=== PATIENT | female | born 1995 | race African-American/Black ===

== ENCOUNTER 2019-09-05 11:21 | Emergency (ER) | payer OTHER ==
[~2019-09-05] VITALS: Ht 162.6 cm; Wt 78.2 kg
[2019-09-05] MEDS ORDERED: CALC600C3 PO (11:28)
[2019-09-05] MEDS ORDERED: NS 1,000 ML IV ONE (12:15)
[2019-09-05] MEDS ORDERED: ONDANSETRON 4MG/2ML VIAL (J2405) IV ONE (12:15)
[2019-09-05 12:26] LABS: EOS % 0.5 % (0.0-3.0); HEMATOCRIT 42.9 % (36.0-47.0); HEMOGLOBIN 13.7 g/dl (12.0-15.5); LYMPH # 0.3 10^3/uL (1.5-5.0); LYMPH % 5.5 % (24.0-44.0); MEAN CORPUSCULAR HGB CONC 31.9 g/dl (32.0-36.5); MEAN CORPUSCULAR VOLUME 94.1 fl (80.0-96.0); MONO # 0.3 10^3/uL (0.0-0.8); MONO % 5.7 % (0.0-5.0); NEUTROPHILS # 5.3 10^3/uL (1.5-8.5); PLATELET COUNT, AUTOMATED 300 10^3/uL (150-450); RED BLOOD COUNT 4.56 10^6/uL (4.00-5.40)
[2019-09-05 12:49] LABS: ALBUMIN 3.9 GM/DL (3.2-5.2); ALT/SGPT 23 U/L (12-78); BILIRUBIN,TOTAL 0.4 MG/DL (0.2-1.0); BLOOD UREA NITROGEN 12 MG/DL (7-18); CALCIUM LEVEL 8.6 MG/DL (8.5-10.1); CARBON DIOXIDE LEVEL 27 MEQ/L (21-32); CHLORIDE LEVEL 109 MEQ/L (98-107); GLOMERULAR FILTRATION RATE > 60.0 (>60); GLUCOSE, FASTING 110 MG/DL (70-100); SODIUM LEVEL 140 MEQ/L (136-145); TOTAL PROTEIN 7.1 GM/DL (6.4-8.2)
[2019-09-05 12:52] LABS: HCG, SERUM QUALITATIVE NEGATIVE (NEGATIVE)
[2019-09-05 13:53] VITALS: BP 117/68
[2019-09-05] MEDS ORDERED: ONDA4TAB6 PO (13:54)
== END 2019-09-05 13:59 | disposition home or self-care (01) ==
LOC: M ED 11:21
DX: A08.11 Acute gastroenteropathy due to Norwalk agent (principal)
CPT/HCPCS: 80053; 84703; 85025; 87507; 96374; 99284; J2405

== ENCOUNTER 2019-10-06 23:28 | Emergency (ER) | payer OTHER ==
[~2019-10-06] VITALS: Ht 162.6 cm; Wt 70.0 kg
[~2019-10-06 23:28] MED LIST: CALC600C3 PO; ONDA4TAB6 PO
[2019-10-07] MEDS ORDERED: ONDANSETRON 4MG/2ML VIAL (J2405) IV ONE ×2 (00:30→01:30)
[2019-10-07 01:17] LABS: BASO % 0.2 % (0.0-1.0); EOS # 0.1 10^3/uL (0.0-0.5); HEMATOCRIT 40.4 % (36.0-47.0); HEMOGLOBIN 13.4 g/dl (12.0-15.5); LYMPH # 1.9 10^3/uL (1.5-5.0); LYMPH % 30.4 % (24.0-44.0); MEAN CORPUSCULAR HEMOGLOBIN 30.5 pg (27.0-33.0); MEAN CORPUSCULAR HGB CONC 33.2 g/dl (32.0-36.5); MEAN CORPUSCULAR VOLUME 91.8 fl (80.0-96.0); MONO # 0.6 10^3/uL (0.0-0.8); MONO % 8.8 % (0.0-5.0); NEUTROPHILS # 3.7 10^3/uL (1.5-8.5); NEUTROPHILS % 59.3 % (36.0-66.0); PLATELET COUNT, AUTOMATED 323 10^3/uL (150-450); WHITE BLOOD COUNT 6.2 10^3/uL (4.0-10.0)
[2019-10-07] MEDS ORDERED: GI COCKTAIL 50ML BTL(HYOSCYAMINE/MAALOX/LIDOCAINE VISCOUS)(1:3:1) PO ONE (01:30)
[2019-10-07] MEDS ORDERED: diphenhydrAMINE INJ 50MG/ML VIAL (J1200) IV STA (01:30)
[2019-10-07] MEDS ORDERED: PANTOPRAZOLE 40MG INJ (PROTONIX) (C9113) IV ONE (01:30)
[2019-10-07] MEDS ORDERED: KETOROLAC 30 MG/ML VIAL (J1885) IV ONE (01:30)
[2019-10-07 01:41] LABS: ALBUMIN 3.9 GM/DL (3.2-5.2); ALT/SGPT 24 U/L (12-78); BILIRUBIN,DIRECT < 0.1 MG/DL (0.0-0.2); BILIRUBIN,TOTAL 0.2 MG/DL (0.2-1.0); LIPASE 36 U/L (73-393); TOTAL PROTEIN 7.2 GM/DL (6.4-8.2)
[2019-10-07 01:49] LABS: INFLUENZA A AMPLIFICATION NEGATIVE (NEGATIVE); INFLUENZA B AMPLIFICATION NEGATIVE (NEGATIVE)
[2019-10-07] MEDS ORDERED: OMEP1CAP73 PO (02:11)
[2019-10-07 02:31] VITALS: BP 123/65
== END 2019-10-07 02:32 | disposition home or self-care (01) ==
LOC: M ED 23:28
DX: K21.9 Gastro-esophageal reflux disease without esophagitis (principal); J02.9 Acute pharyngitis, unspecified
CPT/HCPCS: 80047; 80076; 83690; 84702; 85025; 87502; 96374; 96375; 96376; 99284; C9113; J1200; J1885; J2405

== ENCOUNTER 2020-04-10 23:46 | Emergency (ER) | payer OTHER ==
[~2020-04-10] VITALS: Ht 162.6 cm; Wt 91.6 kg
[~2020-04-10 23:46] MED LIST changes: +OMEP1CAP73 PO
[2020-04-10 23:47] VITALS: BP 131/97
[2020-04-11] MEDS ORDERED: MULTTAB20 PO (00:01)
[2020-04-11] MEDS ORDERED: ONDA4TAB6 (00:01)
== END 2020-04-11 01:00 | disposition home or self-care (01) ==
LOC: M ED 23:46
DX: F41.1 Generalized anxiety disorder (principal); Z79.899 Other long term (current) drug therapy

== ENCOUNTER 2020-04-26 20:28 | Emergency (ER) | payer OTHER ==
[~2020-04-26] VITALS: Ht 162.6 cm; Wt 89.7 kg
[~2020-04-26 20:28] MED LIST changes: +MULTTAB20 PO; +ONDA4TAB6
[2020-04-26 21:21] LABS: BASO % 0.1 % (0.0-1.0); EOS # 0.1 10^3/uL (0.0-0.5); EOS % 1.2 % (0.0-3.0); HEMATOCRIT 37.4 % (36.0-47.0); HEMOGLOBIN 12.6 g/dl (12.0-15.5); LYMPH # 1.9 10^3/uL (1.5-5.0); LYMPH % 16.1 % (24.0-44.0); MEAN CORPUSCULAR HEMOGLOBIN 30.4 pg (27.0-33.0); MEAN CORPUSCULAR HGB CONC 33.7 g/dl (32.0-36.5); MEAN CORPUSCULAR VOLUME 90.3 fl (80.0-96.0); MONO # 0.8 10^3/uL (0.0-0.8); MONO % 6.4 % (0.0-5.0); NEUTROPHILS # 8.8 10^3/uL (1.5-8.5); NEUTROPHILS % 75.7 % (36.0-66.0); PLATELET COUNT, AUTOMATED 326 10^3/uL (150-450); RED BLOOD COUNT 4.14 10^6/uL (4.00-5.40); WHITE BLOOD COUNT 11.7 10^3/uL (4.0-10.0)
[2020-04-26] MEDS ORDERED: NS 1,000 ML IV ONE (21:45)
[2020-04-26] MEDS ORDERED: METOCLOPRAMIDE INJ 10MG/2ML VIAL (J2765 PER 1) IV ONE (21:45)
[2020-04-26 22:19] LABS: ALBUMIN 3.2 GM/DL (3.2-5.2); ALT/SGPT 15 U/L (12-78); BILIRUBIN,DIRECT < 0.1 MG/DL (0.0-0.2); BILIRUBIN,TOTAL < 0.1 MG/DL (0.2-1.0); HCG, SERUM QUANTITATIVE 81957 MIU/ML; LIPASE 37 U/L (73-393); TOTAL PROTEIN 6.7 GM/DL (6.4-8.2)
[2020-04-26 22:47] LABS: BLOOD UREA NITROGEN 11 MG/DL (7-18); CALCIUM LEVEL 9.2 MG/DL (8.5-10.1); CARBON DIOXIDE LEVEL 25 MEQ/L (21-32); CHLORIDE LEVEL 104 MEQ/L (98-107); GLOMERULAR FILTRATION RATE > 60.0 (>60); GLUCOSE, FASTING 79 MG/DL (70-100); POTASSIUM SERUM 3.9 MEQ/L (3.5-5.1); SODIUM LEVEL 135 MEQ/L (136-145)
--- NOTE | 2020-04-27 00:24 | REPVR ---
PROCEDURE INFORMATION: Exam: US First Trimester, Transabdominal Exam date and time: 04/26/2020 12:04 AM Age: 24 years old Clinical indication: complicated by abdominal or pelvic pain; Generalized abdominal pain; First trimester; Gestational age or lmp: 01/04/20; ; Additional info: Abd pain TECHNIQUE: Imaging protocol: Real-time transabdominal obstetrical ultrasound of the maternal pelvis and a first trimester , less than 14 weeks 0 days, with image documentation. COMPARISON: No relevant prior studies available. FINDINGS: Gestation: Single live intrauterine gestation. Embryonic/ heart rate: heart rate measures 160 bpm. Placenta: Unremarkable. No subchorionic bleed. Amniotic fluid: Amniotic fluid is adequate. BIOMETRY: Gestational age (AUA): Estimated gestational age 12 weeks 5 days. Estimated due date (AUA): Estimated due date is 11/03/2020 [place]-R[place] length: [place]ump length is 63 mm. MATERNAL: Uterus: Unremarkable. Cervix: Unremarkable. Right adnexa: Right ovary is obscured by overlying bowel gas. Left adnexa: Left ovary measures 2.7 x 1.6 x 2.5 cm. No masses. Normal vascular flow. Intraperitoneal space: No intraperitoneal free fluid. IMPRESSION: 1. Single live intrauterine gestation. 2. Estimated gestational age is 12 weeks 5 days. 3. Estimated due date 11/03/2020 Electronically signed by: Chasidy Hogan On 04/27/2020 00:24:06 AM
[2020-04-27] MEDS ORDERED: REGL10TA6 PO (00:50)
[2020-04-27 01:01] VITALS: BP 113/68
== END 2020-04-27 01:03 | disposition home or self-care (01) ==
LOC: M ED 20:28
DX: O21.0 Mild hyperemesis gravidarum (principal); Z3A.12 12 weeks gestation of pregnancy; Z79.899 Other long term (current) drug therapy
CPT/HCPCS: 76801; 80048; 80076; 81001; 83690; 84702; 85025; 93976; 96361; 96374; 99284; J2765

== ENCOUNTER 2020-09-19 19:05 | Outpatient (CLI) | payer OTHER ==
[~2020-09-19] VITALS: Ht 162.6 cm; Wt 99.9 kg
[~2020-09-19 19:05] MED LIST changes: +REGL10TA6 PO
[2020-09-19 19:24] VITALS: BP 131/71
--- NOTE | 2020-09-19 20:49 | IPNPDOC ---
Text Note Date of Service The patient was seen on 09/19/20. NOTE 25yo at 33+1wks presenting for c/o lower abdominal pain. She reports this pain is constant in nature in her lower abdomen. She reports this pain has been present for a long time but that she presented to L&D tonight because it has not improved despite hydration. She denies LOF, DFM, VB, or regular ctx's. She does endorse a white discharge but does not know if it is abnormal or not. Vitals: normotensive, afebrile NST: reactive Morrice: uterine irritability noted but no regular ctx's seen. PE: General: well-appearing, sitting upright in bed using cellphone, in NAD, conversing in full sentences HEENT: NC/AT, airway patent and self-maintained RESP: no exaggerated respiratory effort appreciated ABD: soft, nontender, no discoloration Fundus: soft, nontender, S=D : NEFG, vaginal discharge c/w sumaya noted. Cervix closed/thick/high. Ext: no edema noted Labs: UA: negative Microscopy: c/w sumaya A/P: 25yo at 33+1wks presenting for c/o lower abdominal pain that has been present for a long time prior to tonight but unresponsive to hydration and patient reported having to work all day tomorrow. Reassuring and maternal status. UA negative. Vaginitis c/w sumaya appreciated today. -Diflucan PO now -Patient counseled to continue hydration as she has -Patient reports having maternity belt - counseled to wear it daily, may present to OB clinic during business hours to ensure correct fit -Patient counseled on FKCs, labor precautions -Patient to f/u as scheduled in OB clinic All questions answered. Med rec done. VS,Fishbone, I+O VS, Fishbone, I+O Vital Signs Date Time Temp Pulse Resp B/P (MAP) Pulse Ox O2 Delivery O2 Flow Rate FiO2 09/19/20 19:24 97.8 113 131/71 (91) NELY GUIDO DO Sep 19, 2020 20:49
== END 2020-09-19 21:00 | disposition home or self-care (01) ==
LOC: M LDO 19:05
DX: O26.893 Other specified pregnancy related conditions, third trimester (principal); R10.30 Lower abdominal pain, unspecified; Z3A.33 33 weeks gestation of pregnancy
CPT/HCPCS: 59025; 81001; 87086; G0378; G0463

== ENCOUNTER 2020-11-01 06:45 | Inpatient (IN) | payer OTHER ==
[~2020-11-01] VITALS: Ht 162.6 cm; Wt 104.1 kg
[2020-11-01] VITALS (7 sets, daily range): BP systolic 106–127; BP diastolic 60–83
[2020-11-01] MEDS ORDERED: PENICILLIN G POTASSIUM IV 5 MU in D5W MINI-BAG PLUS 100 ML IV STA (09:06)
[2020-11-01] MEDS ORDERED: miSOPROStol 25MCG 1/4 TABLET PO ONE (09:10)
--- NOTE | 2020-11-01 09:36 | HPEPDOC ---
Obstetrical History & Physical General Date of Admission Nov 01, 2020 at 06:45 History of Present Illness Michelle is a 25yo at 39+2wks gestation, EDC [id number] by 1TUS. She presents to L&D for admission for IOL d/t new diagnosis of GDM, Late 1hr glucose screen of 214. Pt reports +FM, denies LOF/VB/CTX. She feels well and has no concerns today. complicated by: Overweight, BMI 29.1 Excessive weight gain of 58lbs 1hr Glucose 214 (late 3rd trimester screen) GBS Positive Rh Negative (O-) Chief Complaint: Induction of labor Information Provided By: Patient Age: 25 : 1 Term: 0 Pre-term: 0 Abortions: 0 Livin Care Care: Good Care Number of Visits: 10 Dating Final EDC: Nov 06, 2020 Final EDC for Daily Update: Nov 06, 2020 Final EDC by: 1st trimester (US) Antepartum Course Height (inches): 64 Pre- weight (lbs.): 170 Admission Weight (lbs.): 228 Change in Weight (lbs.): 58 Past Medical History Past Obstetrical History : Past Obstetrical History: [employer] History: No pertinent history Past Medical History Medical History Stress fractures in hips (2019) Overweight Surgical History: [place] teeth Family History Family History Patient Adopted - unknown family history Social History Social history Active [employer] Marital Status: Family situation: Spouse/partner home * Smoker: non-smoker Alcohol: Denies Drugs: denies Abuse Violence Screening Have you been hit/kicked/slapp: No Have you been sexually assault: No Imunizations Tdap status: current Influenza Status: current Allergies Coded Allergies: No Known Allergies (Unverified , 09/05/19) Medications Scheduled No122/Iron/Folic Acid ( Multi Tablet) 1 Each Tablet, 1 TAB PO DAILY Physical Examination Physical Examination GENERAL: Alert and oriented times three. ABDOMEN: Gravid and non-tender to touch. FETUS: Is vertex (VTX) by sterile vaginal examination (SVE), fetus is vertex (VTX) by Omega. HEART RATE: Regular rate and rhythm. LUNGS: Observed nonlabored breathing. EXTREMITIES: Mild pedal edema. No clonus. Vital Signs/I&O O: VSS, afebrile FHR 150s, + accels, no decels noted CTX: q 6-8 minutes, mild by palpation, pt denies feeling EFW 3700g VE: Close/70%/High, posterior Labs: Pending Laboratory Data 24H LABS Laboratory Tests 2 11/01/20 06:51: Serology Scanned Report Hepatitis B Testing Pertinent Laboratoy Data Blood Type: O- RBC Antibody Screen: Negative HIV: Negative Hepatitis B: Negative Rapid Plasma Reagin: Nonreactive Rubella: Immune Varicella: Immune Chlamydia/Gonorrhea: Negative Group B Streptococcus: Positive Quad Screen Test: Declined Cystic Fibrosis: Negative Anatomy Ultrasound Ultrasound Date: Oct 22, 2020 Placenta Location: Anterior Normal Anatomy: Yes Placenta Previa: No Vaginal Examination Presentation: Cephalic presentation Tocometer Contractions: Yes Strength: palpated as mild Assessment/Plan Assessment Michelle is a 25yo at 39+1wks gestation who is being admitted for IOL d/t late dx of GDM. Category I FHT, GBS Positive, Rh Negative. Plan Admit to LND, consent for induction, labor and delivery, interventions and C/S as appropriate. Consent for blood products PRN PIV start, admission labs with CMP Fingersticks AC/HS (will change as labor progresses) Start IOL with PO cytotec Consider CRB at next exam Consider Pitocin as labor progresses IV and PO hydration Diabetic diet PCN for GBS when in labor Anticipate Consult with OB as indicated MARY MOREAU CNM Nov 01, 2020 09:36
[2020-11-01 09:43] LABS: BASO % 0.1 % (0.0-1.0); EOS # 0.1 10^3/uL (0.0-0.5); EOS % 0.8 % (0.0-3.0); HEMATOCRIT 36.4 % (36.0-47.0); HEMOGLOBIN 12.1 g/dl (12.0-15.5); LYMPH # 1.5 10^3/uL (1.5-5.0); LYMPH % 19.4 % (24.0-44.0); MEAN CORPUSCULAR HEMOGLOBIN 29.4 pg (27.0-33.0); MEAN CORPUSCULAR HGB CONC 33.2 g/dl (32.0-36.5); MEAN CORPUSCULAR VOLUME 88.3 fl (80.0-96.0); MONO # 0.8 10^3/uL (0.0-0.8); MONO % 10.1 % (2.0-8.0); NEUTROPHILS # 5.5 10^3/uL (1.5-8.5); PLATELET COUNT, AUTOMATED 246 10^3/uL (150-450); RED BLOOD COUNT 4.12 10^6/uL (4.00-5.40)
[2020-11-01 10:44] LABS: ALBUMIN 2.5 GM/DL (3.2-5.2); ALT/SGPT 10 U/L (12-78); BILIRUBIN,TOTAL 0.1 MG/DL (0.2-1.0); BLOOD UREA NITROGEN 9 MG/DL (7-18); CALCIUM LEVEL 9.2 MG/DL (8.5-10.1); CARBON DIOXIDE LEVEL 21 MEQ/L (21-32); CHLORIDE LEVEL 107 MEQ/L (98-107); GLOMERULAR FILTRATION RATE > 60.0 (>60); GLUCOSE, FASTING 92 MG/DL (70-100); POTASSIUM SERUM 4.5 MEQ/L (3.5-5.1); SODIUM LEVEL 136 MEQ/L (136-145); TOTAL PROTEIN 5.8 GM/DL (6.4-8.2)
[2020-11-01] MEDS ORDERED: PENICILLIN G POTASSIUM IV 2.5 MU in IV 1 EA IV SCH (13:10)
[2020-11-01] MEDS ORDERED: miSOPROStol 50MCG 1/2 TABLET PO ONE (15:00)
--- NOTE | 2020-11-01 15:11 | IPNPDOC ---
Obstetrical Progress Note Date of Service Nov 01, 2020 Anaya Martinez is a 25yo at 39+2wks currently undergoing IOL for GDM. Pt denies feeling any contractions, denies VB/LOF, reports +FM. She feels well and has no concerns at this time. Objective O: VSS, afebrile Fingersticks WNL VE: deferred FHR 140, moderate variability, + accels, no decels noted CTX by TOCO: q7-8 minutes, pt not feeling Vital Signs Date Time Temp Pulse Resp B/P (MAP) Pulse Ox O2 Delivery O2 Flow Rate FiO2 11/01/20 11:40 96 106/60 (75) 11/01/20 11:40 97.6 18 Assessment Heart Rate Tracing: Category I Tocometer Contractions: Yes Frequency: regular Sterile Vaginal Examination Postion/Presentation: Cephalic presentation Assessment and Plan Status: Reassuring Group B Streptococcus: Positive Anticipate: Vaginal Delivery Additional Comments A: 25yo at 39+2wks, undergoing IOL for GDM, not in labor. Category I FHT P: Administer 2nd dose of Buccal Cytotec 50mcg Monitor maternal/ status Intermittent monitoring per protocol after 1st hour post cytotec Consult with OB if indicated Anticipate MARY MOREAU CNM Nov 01, 2020 15:10
[2020-11-01] MEDS ORDERED: CALCIUM CARBONATE 500 MG CHEW U/D PO ONE (19:55)
[2020-11-01] MEDS: ONDANSETRON 4MG/2ML VIAL IV PRN (20:03)
[2020-11-02] VITALS (9 sets, daily range): BP systolic 119–141; BP diastolic 68–97
[2020-11-02] MEDS ORDERED: miSOPROStol 25MCG 1/4 TABLET PV ONE (08:15)
--- NOTE | 2020-11-02 09:48 | IPNPDOC ---
Obstetrical Progress Note Date of Service Nov 02, 2020 Subjective Received report and assumed care for Michelle, 25yo at 39+3wks, who was admitted yesterday for IOL d/t late diagnosis of GDM. She did received 2x PO doses of Cytotec yesterday (25mcg/50mcg) and allowed to rest overnight. She reports +FM, denies LOF/VB/CTX and denies any concerns at this time. Objective O: VSS, afebrile FHR 140s, moderate variability, + accels, few late decelerations when pt is lying on back that resolve spontaneously CTX by TOCO: q 2-6 minutes, but pt denies feeling VE: Closed/30/High (unchanged from yesterday) Vital Signs Date Time Temp Pulse Resp B/P (MAP) Pulse Ox O2 Delivery O2 Flow Rate FiO2 11/02/20 03:27 97.9 88 16 119/70 (86) Assessment Heart Rate Tracing: Category II Tocometer Contractions: Yes Frequency: irregular Sterile Vaginal Examination Postion/Presentation: Cephalic presentation Assessment and Plan Status: Reassuring Group B Streptococcus: Positive Anticipate: Vaginal Delivery Additional Comments A: 25yo G1P-at 39+3wks, IOL for GDM, fingersticks D/C'd overnight (were WNL). Category II FHT d/t late decelerations, otherwise reassuring FHT. P: Close monitoring of maternal/ status Reposition and keep pt from lying flat on back Continue IOL with Cytotec (PV 25mcg) Consult with OB as indicated Anticipate MARY MOREAU CNM Nov 02, 2020 09:48
[2020-11-02] MEDS ORDERED: miSOPROStol 50MCG 1/2 TABLET PO ONE (14:55)
[2020-11-02] MEDS ORDERED: PROMETHAZINE INJ 25 MG/ML VIAL (J2550) IV PRN (20:25)
[2020-11-02] MEDS ORDERED: BUTORPHANOL 2 MG/ML INJ (J0595) IV PRN (20:25)
[2020-11-02] MEDS ORDERED: MIRALAX *UNIT DOSE* 17GM PACKET PO PRN (20:40)
[2020-11-02] MEDS ORDERED: OXYTOCIN DRIP 30 UNITS in IV 1 EA IV SCH (20:50)
--- NOTE | 2020-11-02 20:50 | IPNPDOC ---
Text Note Date of Service The patient was seen on 11/02/20. NOTE 25 yo at 39+3 weeks gestation admitted yesterday morning for an IOL for new diagnosis of GDM based on late 1hr GTT of 214. Her induction process has been slow, and she has received 4 doses of misoprostol since yesterday morning, most recently 50mcg buccally at ~1530 today. Michelle reports feeling some mild cramping but nothing significant. She denies any bleeding. She endorses movement. She has just eaten. Chaperoned by RN Vitals - VSS, afebrile, normotensive, non tachycardic General - AAOX3, sitting up in bed, pleasant and conversant, NAD Abdomen - Gravid uterus. No fundal tenderness. Cervix - FT/80/-4, posterior. Whitten bulb placed with 40ml saline intrauterine. FHR tracing - Cat I with moderate variability, +accels, no decels. Ctx regular Q2-3 mins Bedside TAUS ( anatomy not assessed): cephalic presenting infant Will add concurrent low dose pitocin when feasible. Stadol and phenergan ordered for pain and nausea. Miralax also ordered per patient request as she hasn't had a bowel movement in several days and feels constipated. Will start Q2H fingerstick blood glucose checks and also initiate PCN for GBS prophylaxis when whitten bulb is expelled. All patient questions answered. Fallon Ruiz, I+O Fallon BOWENS, I+O Vital Signs Date Time Temp Pulse Resp B/P (MAP) Pulse Ox O2 Delivery O2 Flow Rate FiO2 11/02/20 13:20 82 126/75 (92) 11/02/20 11:35 18 11/02/20 08:00 97.8 YAIMA WYATT DO Nov 02, 2020 20:49
[2020-11-02] MEDS: LR 1,000 ML IV SCH (21:08)
[2020-11-03] VITALS (56 sets, daily range): BP systolic 108–156; BP diastolic 57–92
[2020-11-03] MEDS ORDERED: PENICILLIN G POTASSIUM IV 5 MU in D5W MINI-BAG PLUS 100 ML IV STA (03:48)
[2020-11-03] MEDS: LR 1,000 ML IV SCH ×2 (03:53→10:05)
[2020-11-03] MEDS ORDERED: FENTANYL 2MCG/ML ROPIVACAINE 0.2% IN 0.9% NACL 100ML IVBAG As Ordered ONE (04:05)
[2020-11-03] MEDS: ONDANSETRON 4MG/2ML VIAL IV PRN (04:11)
[2020-11-03] MEDS ORDERED: ONDANSETRON 4MG/2ML VIAL IV PRN ×3 (06:00→14:15)
[2020-11-03] MEDS ORDERED: EPIDURAL COMMENT XX SCH (06:00)
[2020-11-03] MEDS ORDERED: NALOXONE INJ 0.4MG/1ML VIAL (J2310 PER 1MG) IV PRN ×3 (06:00→12:28)
[2020-11-03] MEDS ORDERED: diphenhydrAMINE 50MG/ML VIAL (J1200) IV PRN ×2 (06:00→12:28)
[2020-11-03] MEDS ORDERED: ePHEDrine SULFATE 25 MG/5 ML(5MG/ML) SYRINGE IV PRN (06:00)
[2020-11-03] MEDS ORDERED: LACTATED RINGER'S 1000 ML IV PRN (06:00)
[2020-11-03] MEDS ORDERED: FENTANYL/ROPIVACAINE/NACL BAG 100 ML EPIDURAL SCH (06:00)
[2020-11-03] MEDS ORDERED: REFRIGERATOR IV KEYS XX PRN (06:00)
[2020-11-03] MEDS ORDERED: EPIDURAL/PCA KEYS XX PRN (06:00)
--- NOTE | 2020-11-03 06:39 | IPNPDOC ---
Text Note Date of Service The patient was seen on 11/03/20. NOTE Michelle progressed slowly while on low dose pitocin. She underwent SROM, clear fluid, at ~0300 this AM. Lara bulb came out around ~0530. Cervix 4-5/80/-3 per RN exam. She recently received an epidural and is now comfortable. FHR has been Cat II due to some periods of minimal variability and sporadic variable and late decels. She has received IV fluid and ephedrine and positional changes have been completed. FHR currently is reassuring with moderate variability and +accels. Glucose levels have been 70s-90s. She has been receiving PCN. Plan to continue with pitocin. Mo VS,Fallon, I+O VS, Fallon, I+O Vital Signs Date Time Temp Pulse Resp B/P (MAP) Pulse Ox O2 Delivery O2 Flow Rate FiO2 11/03/20 06:14 96 116/62 (80) 11/03/20 06:04 98.2 20 11/02/20 21:08 Room Air YAIMA WYATT DO Nov 03, 2020 06:39
[2020-11-03] MEDS ORDERED: PENICILLIN G POTASSIUM IV 2.5 MU in IV 1 EA IV SCH (08:00)
[2020-11-03] MEDS ORDERED: ACETAMINOPHEN 650 MG SUPP PR SCH (10:40)
[2020-11-03] MEDS ORDERED: ACETAMINOPHEN 650 MG SUPP PR ONE (11:00)
--- NOTE | 2020-11-03 11:10 | IPNPDOC ---
Obstetrical Progress Note Date of Service Nov 03, 2020 Subjective Received report and assumed care of Michelle, a 25yo at 39+4wks today, who is now on day #3 of IOL for undiagnosed GDM. She has received cytotec x4, CRB, SROM at 0312 (clear fluid); stadol/phenergan for pain and now is comfortable with epidural. Pt was started on pitocin this AM, but has had recurrent late decelerations on and off since her epidural. Pt has been adequately treated for GBS. Objective O: VSS, now febrile (temp 100.4 rectally). One mild range BP around 0730, otherwise WNL FHR was stable at 150s, +accels, late decelerations Pitocin turned off at 0919 and late decels have resolved, then FHR increased to 170s-180s with continued moderate variability. CTX q 3-5 minutes on pitocin, now spacing since pitocin turned off VE at 0850: 5/80/-3, caput present, no change for >3 hours Vital Signs Date Time Temp Pulse Resp B/P (MAP) Pulse Ox O2 Delivery O2 Flow Rate FiO2 11/03/20 08:15 103 138/87 (104) 11/03/20 07:14 99.2 20 98 Room Air Assessment Variability: Moderate Heart Rate Tracing: Category II Tocometer Contractions: Yes Sterile Vaginal Examination Postion/Presentation: Cephalic presentation Assessment and Plan Group B Streptococcus: Positive Additional Comments A: 25yo at 39+4wks, IOL for GDM, new dx of chorio. P: Unasyn for chorio Tylenol for temp Notified Dr. Harkins of patient status Rapid Covid ordered Close maternal / monitoring Will reassess to determine delivery options MARY MOREAU CNM Nov 03, 2020 11:10
[2020-11-03] MEDS: AMPICILLIN SOD/SULBACTAM SOD 3 GM in D5W MINI-BAG PLUS 100 ML IV SCH ×2 (11:12→18:06)
[2020-11-03] MEDS ORDERED: BICITRA 30ML SOLN UDC PO ONE (11:20)
[2020-11-03] MEDS ORDERED: AZITHROMYCIN INJ 500 MG, VIAL MATE ADAPTER 1 EACH in NS 250 ML IV ONE (11:20)
[2020-11-03] MEDS ORDERED: OXYTOCIN DRIP 30 UNITS in IV 1 EA IV PRN (11:20)
[2020-11-03] MEDS ORDERED: BUPIVACAINE HCL 0.25% 10ML VIAL SC SCH (11:20)
[2020-11-03] MEDS ORDERED: LIDOCAINE 2% W/EPINEPHRINE 20ML VIAL **PRES FREE As Ordered ONE (11:38)
[2020-11-03] MEDS ORDERED: OXYTOCIN INJ 10 UNITS/ML VIAL (J2590) As Ordered ONE ×2 (11:41→11:42)
[2020-11-03] MEDS ORDERED: CLINDAMYCIN 900 MG in IV 1 EA IV ONE ×3 (11:45→20:00)
--- NOTE | 2020-11-03 11:59 | IPNPDOC ---
Obstetrical Progress Note Date of Service Nov 03, 2020 Objective Vital Signs Date Time Temp Pulse Resp B/P (MAP) Pulse Ox O2 Delivery O2 Flow Rate FiO2 11/03/20 08:15 103 138/87 (104) 11/03/20 07:14 99.2 20 98 Room Air Assessment Variability: Moderate Accelerations: Positive Decelerations: Intermittent Heart Patterns: Tachycardia Heart Rate Tracing: Category II Tocometer Contractions: Yes Frequency: irregular Assessment and Plan Additional Comments Patient is a 25yo who presented for IOL for late diagnosis of GDM at 39+2. She is now 39+4. She underwent cervical ripening and spontaneously ruptured at 0300. Her whitten balloon came out at 0530. Her last cervical exam was at 0850 and was 5/80/-3 with notable caput. She has persistently had an intermittent CAT II FHR tracing, requiring at one point pitocin shut off. The pitocin was not able to be resumed as her baby became tachycardic and she still had intermittent variable and late decelerations. She fevered and was diagnosed with IAI and was started on unison. At this point we are unable to augment her labor due to a category II tracing and she is not achieving cervical change without augmentation. I discussed with her waiting until the antibiotics and tylenol had more time to work and seeing if her baby would become more consistently cat I and would tolerate another trial of pitocin vs doing a now. We discussed the risks of waiting to be emergent , PPH, worsening infection, higher risk of surgical complications. We discussed the risks of now to include routine surgical complications. The patient would like to proceed with now. - GI prophylaxis: bicitra - DVT prophylaxis: SCDs, early ambulation - ABX prophylaxis: unison already given, will also given clinda pre-op, will also give single dose of unison and clinda post-op for further IAI coverage - also meeting criteria for GHTN, denied si/sx of pre-e at this time, ordered tox labs - consents signed, patient educated on r/b/a of surgery and blood transfusion REN Solitario DO Nov 03, 2020 11:59
[2020-11-03] MEDS ORDERED: MORPHINE PRES-FREE INJ 10 MG/10 ML VIAL (J2274) As Ordered ONE (12:27)
[2020-11-03] MEDS ORDERED: METOCLOPRAMIDE INJ 10MG/2ML VIAL (J2765 PER 1) IV PRN ×2 (12:28→14:15)
[2020-11-03] MEDS ORDERED: NALBUPHINE HCL 10 MG/ML AMP (J2300) IV PRN (12:28)
[2020-11-03] MEDS ORDERED: KETOROLAC 60MG 2ML VIAL As Ordered ONE (12:30)
[2020-11-03] MEDS ORDERED: TRANEXAMIC ACID 100 MG/ML 10ML VIAL As Ordered ONE (12:34)
[2020-11-03] MEDS ORDERED: ONDANSETRON 4MG/2ML VIAL As Ordered ONE (13:03)
[2020-11-03 13:09] LABS: CORD GAS ABE A -3.1; CORD GAS ABE V -4.6; CORD GAS HCO3 A 27.2 MEQ/L; CORD GAS HCO3 V 22.6 MEQ/L; CORD GAS PCO2 A 70.1 mmHg; CORD GAS PCO2 V 48.9 mmHg; CORD GAS PH A 7.206 UNITS; CORD GAS PH V 7.282 UNITS; CORD GAS PO2 V 26.1 mmHg; CORD GAS SBC A 19.8 MEQ/L; CORD GAS SBC V 19.7 MEQ/L; CORD GAS TCO2 A 29.3 MEQ/L; CORD GAS TCO2 V 24.1 MEQ/L
[2020-11-03] MEDS ORDERED: OXYTOCIN 30 UNITS IN 0.9% NaCl 500ML IV BAG (J2590) As Ordered ONE (13:39)
[2020-11-03] MEDS ORDERED: SIMETHICONE 80MG CHEW TAB PO PRN (14:00)
[2020-11-03] MEDS ORDERED: TRANEXAMIC ACID INJection 1,000 MG in NS 100 ML IV ONE (14:00)
[2020-11-03] MEDS ORDERED: OXYTOCIN DRIP 30 UNITS in IV 1 EA IV SCH (14:00)
[2020-11-03] MEDS ORDERED: ACETAMINOPHEN TAB 650MG DOSE (2X325MG) PO PRN (14:00)
[2020-11-03] MEDS ORDERED: ACETAMINOPHEN 500 MG TAB PO PRN (14:00)
[2020-11-03] MEDS ORDERED: oxyCODONE 5MG TAB PO PRN ×2 (14:00→14:15)
--- NOTE | 2020-11-03 14:00 | ROOPDOC ---
[facility] Report Of Operation Report of Operation DATE OF PROCEDURE: 11/03/20 PREPROCEDURE DIAGNOSES: category II heart tracing, inability to augment labor, intraamniotic infection, gestational diabetes POSTPROCEDURE DIAGNOSES: same + macrosomia, large for gestational age PROCEDURE: primary delivery SURGEON: Ren Locke DO PODIATRIC PHYSICIAN: Viv Keith CNM ANESTHESIA: epidural ESTIMATED BLOOD LOSS: Approximately 800 mL. COMPLICATIONS: none REMARKS: none PROCEDURE NOTE: 25yo who presented for IOL for late diagnosis of GDM at 39+2. She is now 39+4. She underwent cervical ripening and spontaneously ruptured at 0300. Her whitten balloon came out at 0530. Her last cervical exam was at 0850 and was 5/80/-3 with notable caput. She has persistently had an intermittent CAT II FHR tracing, requiring at one point pitocin shut off. The pitocin was not able to be resumed as her baby became tachycardic and she still had intermittent variable and late decelerations. She fevered and was diagnosed with IAI and was started on unison. She was taken for for CAT II heart tracing with inability to augment labor. The risks, benefits, and alternatives of were discussed and written consent was obtained. A final time out was performed. The patient received bicitra, unison and clindamycin pre-operative. She was taken to the OR where her epidural was dosed to a surgical level. She was positioned supine with a left lateral tilt and her arms out. The anesthesia was tested to be adequate. A Pfannenstiel incision was made and carried to the fascia with a scalpel. The fascia was scored and the incision carried in a curvilinear fashion with the curved wilson scissors. Koker clamps were used to elevate the fascia and the muscles were dissected from the fascia with blunt dissection and curved wilson scissors. The same procedure was repeated on the lower fascial edge. The muscles were bluntly and the peritoneum entered bluntly. The lower uterine segment was identified and a bladder flap was made with the metzambaum scissors. A bladder blade was placed. A transverse incision was made in the lower uterine segment and extended bluntly. The head was then delivered followed by the corpus. The baby had spontaneous movement and cry. The cord was clamped x2 and cut and the baby given to the pediatrics team. Cord gasses and blood were obtained. The placenta was delivered with triston traction and was in-tact. The uterus was exteriorized and cleaned of debris with a moist lap. The incision was then reapproximated with 0-monocryl in a running locking fashion. An inmbricating layer was then performed with 0-monocryl in a horizontal fashion. The right side of the hysterotomy had a small extension and this required additional figure of 8 stitches with 0-monocryl for hemostasis. There was a small hematoma that was identified on the left side of the hysterotomy. This was visualized off tension for an extended period of time and was not expanding. The hysterotomy was hemostatic. The posterior cul-de-sac was then irrigated and clots removed with a moist lap. The uterus, ovaries, and fallopian tubes appeared normal. The uterus was replaced into the abdomen. The gutters were cleaned with a moist lap bilaterally. The hysterotomy was then viewed again and remained hemostatic. The small hematoma had not expanded. Eliazar was placed over the hysterotomy. The muscles and fascia were inspected and were hemostatic. The fascia was then reapproximated with 0-PDS in a running fashion. The subcutaneous tissue was copiously irrigated and was inspected to be hemostatic. The fascia and subcutaneous tissue was injected with 0.25% marcaine. The subcutaneous tissue was reapproximated with 2-0 vicryl in a running fashion. The skin was reapproximated with 3-0 monocryl and secured with dermabond. A uterine sweep was performed and the uterus was at U-1. There were no complications. The patient tolerated the procedure well. The sponge, lap, and needle counts were correct x2. The incision in the uterus was made in a fashion where the patient is a candidate for a trial of labor. REN LOCKE DO Nov 03, 2020 14:00
[2020-11-03] MEDS ORDERED: LR 1,000 ML IV SCH (14:15)
[2020-11-03] MEDS ORDERED: fentaNYL 100 MCG/2 ML INJECTION (J3010) IV PRN (14:15)
[2020-11-03 14:17] LABS: HEMATOCRIT 34.7 % (36.0-47.0); HEMOGLOBIN 11.4 g/dl (12.0-15.5); MEAN CORPUSCULAR HEMOGLOBIN 29.3 pg (27.0-33.0); MEAN CORPUSCULAR HGB CONC 32.9 g/dl (32.0-36.5); MEAN CORPUSCULAR VOLUME 89.2 fl (80.0-96.0); PLATELET COUNT, AUTOMATED 237 10^3/uL (150-450); RED BLOOD COUNT 3.89 10^6/uL (4.00-5.40); WHITE BLOOD COUNT 11.9 10^3/uL (4.0-10.0)
[2020-11-03 14:47] LABS: ALBUMIN 2.1 GM/DL (3.2-5.2); ALT/SGPT 8 U/L (12-78); BILIRUBIN,TOTAL 0.2 MG/DL (0.2-1.0); BLOOD UREA NITROGEN 8 MG/DL (7-18); CARBON DIOXIDE LEVEL 25 MEQ/L (21-32); CHLORIDE LEVEL 108 MEQ/L (98-107); CREATININE FOR GFR 0.85 MG/DL (0.55-1.30); GLOMERULAR FILTRATION RATE > 60.0 (>60); GLUCOSE, FASTING 123 MG/DL (70-100); LDH LACTATE DEHYDROGENASE 254 U/L (84-246); POTASSIUM SERUM 4.1 MEQ/L (3.5-5.1); SODIUM LEVEL 140 MEQ/L (136-145); TOTAL PROTEIN 4.9 GM/DL (6.4-8.2); URIC ACID 4.9 MG/DL (2.6-6.0)
[2020-11-03 15:33] LABS: TOTAL PROTEIN,RANDOM URINE 49.1 MG/DL (0.0-12.0)
[2020-11-03] MEDS: KETOROLAC 30 MG/ML 1ML VIAL IV SCH (18:45)
[2020-11-03] MEDS: DOCUSATE SODIUM 100MG CAPSULE PO PRN (19:33)
[2020-11-04] MEDS: KETOROLAC 30 MG/ML 1ML VIAL IV SCH ×2 (00:24→06:09)
[2020-11-04 02:00] VITALS: BP 114/60
[2020-11-04] MEDS: LR 1,000 ML IV SCH (02:25)
[2020-11-04 05:53] VITALS: BP 111/62
[2020-11-04] MEDS: PRENATAL VITAMINS CHEWABLE TABLET PO SCH (08:35)
--- NOTE | 2020-11-04 09:48 | IPNPDOC ---
Progress Note Date of Service: Nov 04, 2020 Day#: 1 Progress Note SUBJECT: Michelle is a 25 -year-old 1 now Para 1001 POD1 S/P PLCD for cat II tracing remote from delivery at 39w4d of female 4540g, 9/9,. she was complicated by IAI and received unisyn and clindamycin.she is doing well. baby is nicu for obs for 48 hrs. . She has been ambulating, voiding spontaneously without issue and tolerating regular diet. Breast feeding without issue. Reports lochia is like a normal period. OBJECTIVE: VITAL SIGNS: Within normal limits, afebrile. Alert and oriented times three. Breath sounds clear to auscultation. Heart rate: Regular rate and rhythm Abdomen: Fundus firm at U-1, appropriate fundal tenderness post op ASSESSMENT: Michelle is a 25 -year-old 1 now Para 1001 POD1 S/P PLCD for cat II tracing remote from delivery at 39w4d of female 4540g, 9/9,. she was complicated by IAI and received Unasyn and clindamycin.she is doing well. Vitals within normal limits, afebrile, hemodynamically stable with no evidence of infection. PREOP H/H:12.1/36.2 EBL: 800ML, POST OP H/H: Pending PLAN: 1. Discharge to home on POD2/3 2. Tylenol, Oxycodone and Motrin for pain. 3. Encourage breast feeding and ambulation. 4. Mirena IUD for contraception- Will place at 6 weeks pp 5. Routine PP visit in 2 and 6 weeks in clinic. 6. Discussed return precautions at length. VS, I&O, 24H, [place] Vital Signs/I&O Vital Signs Date Time Temp Pulse Resp B/P (MAP) Pulse Ox O2 Delivery O2 Flow Rate FiO2 11/04/20 05:53 98.7 94 16 111/62 (78) 98 Room Air I&O- Last 24 Hours up to 6 AM 11/04/20 06:00 Intake Total 8720 ml Output Total 2525 ml Balance 6195 ml Laboratory Data 24H LABS Laboratory Tests 2 11/03/20 10:03: Bedside Glucose (Misc Panel) 117H 11/03/20 12:51: Cord Arterial Blood pH 7.206, Cord Arterial Blood PCO2 70.1, Cord Arterial Blood PO2 15.0, Cord Arterial Blood HCO3 27.2, Cord Arterial Blood Total CO2 29.3, Cord Arterial Blood Base Excess -3.1, Cord Arterial Base Excess (Standard 19.8, Cord Arterial Bld Oxygen Saturation 23.0, Cord Venous Blood pH 7.282, Cord Venous Blood PCO2 48.9, Cord Venous Blood PO2 26.1, Cord Venous Blood HCO3 22.6, Cord Venous Blood Total CO2 24.1, Cord Venous Base Excess (Actual) -4.6, Cord Venous Base Excess (Standard) 19.7, Cord Venous Blood Oxygen Saturation 59.0 11/03/20 14:01: Nucleated Red Blood Cells % (auto) 0.0, Anion Gap 7L, Glomerular Filtration Rate > 60.0, Uric Acid 4.9, Calcium Level 8.0L, Total Bilirubin 0.2#, Aspartate Amino Transf (AST/SGOT) 10, Alanine Aminotransferase (ALT/SGPT) 8L, Alkaline Phosphatase 156H, Lactate Dehydrogenase 254H, Total Protein 4.9L, Albumin 2.1L, Albumin/Globulin Ratio 0.8L 11/03/20 14:47: Urine Random Creatinine 89.0, Urine Random Total Protein 49.1H CBC/BMP Laboratory Tests 11/03/20 14:01 Microbiology Microbiology 11/03/20 Respiratory Virus Panel (PCR) ([facility]) - Final, Complete LEEANN HENSON MD Nov 04, 2020 09:48
[2020-11-04 10:00] VITALS: BP 105/58
[2020-11-04 10:35] LABS: HEMOGLOBIN 9.8 g/dl (12.0-15.5); MEAN CORPUSCULAR HEMOGLOBIN 29.6 pg (27.0-33.0); MEAN CORPUSCULAR HGB CONC 32.7 g/dl (32.0-36.5); MEAN CORPUSCULAR VOLUME 90.6 fl (80.0-96.0); PLATELET COUNT, AUTOMATED 181 10^3/uL (150-450); RED BLOOD COUNT 3.31 10^6/uL (4.00-5.40); WHITE BLOOD COUNT 13.2 10^3/uL (4.0-10.0)
[2020-11-04] MEDS ORDERED: RHOGAM 300 MCG (1500 IU) INJ (J2790) IM SCH (11:35)
[2020-11-04 14:00] VITALS: BP 118/57
[2020-11-04] MEDS: IBUPROFEN 800 MG TAB PO SCH ×2 (14:11→22:07)
[2020-11-04] MEDS: DOCUSATE SODIUM 100MG CAPSULE PO PRN (21:10)
[2020-11-04 22:00] VITALS: BP 136/86
[2020-11-05 02:00] VITALS: BP 133/63
[2020-11-05] MEDS: oxyCODONE 5MG TAB PO PRN ×3 (04:27→20:15)
[2020-11-05 05:05] VITALS: BP 132/69
[2020-11-05] MEDS: IBUPROFEN 800 MG TAB PO SCH ×3 (05:56→22:03)
--- NOTE | 2020-11-05 08:10 | IPNPDOC ---
Progress Note Date of Service: Nov 05, 2020 Day#: 2 Progress Note SUBJECT: Michelle is a 25 -year-old 1 now Para 1001 POD2 S/P PLCD for cat II tracing remote from delivery at 39w4d of female 4540g, 9/9,. she was complicated by IAI and received unisyn and clindamycin.she is doing well. baby is nicu for obs for 48 hrs. She also has pre-eclampsia without severe features. She has been ambulating, voiding spontaneously without issue and tolerating regular diet. Breast feeding without issue. Reports lochia is like a normal period. Denied n/v/d, cp, sob, goncalves, visual changes, f/c, heavy bleeding, urinary sx. she did have increased pain this morning but then had some narcotic pain medication and passed flatus and it has resolved. OBJECTIVE: VITAL SIGNS: Within normal limits, afebrile. no increased wob Heart rate: non-tachy Abdomen: Fundus firm at U-1, appropriate fundal tenderness post op, incision clean dry and well approx with dermabond ASSESSMENT: Michelle is a 25 -year-old 1 now Para 1001 POD2 S/P PLCD for cat II tracing remote from delivery at 39w4d of female 4540g, 9/9,. she was complicated by IAI and received unisyn and clindamycin.she is doing well. baby is nicu for obs for 48 hrs. She also has pre-eclampsia without severe features. Vitals within normal limits, afebrile, hemodynamically stable with no evidence of infection. PREOP H/H:12.1/36.2 EBL: 800ML, POST OP H/H: 9.8/30 PLAN: 1. Discharge to home on POD3 2. Tylenol, Oxycodone and Motrin for pain. 3. Encourage breast feeding and ambulation. 4. Mirena IUD for contraception- Will place at 6 weeks pp 5. Routine PP visit in 2 and 6 weeks in clinic. 6. Discussed return precautions at length. VS, I&O, 24H, Fishbone Vital Signs/I&O Vital Signs Date Time Temp Pulse Resp B/P (MAP) Pulse Ox O2 Delivery O2 Flow Rate FiO2 11/05/20 05:50 98.8 11/05/20 05:05 95 18 132/69 (90) 99 Room Air I&O- Last 24 Hours up to 6 AM 11/05/20 05:59 Intake Total 600 ml Output Total 650 ml Balance -50 ml Laboratory Data 24H LABS Laboratory Tests 2 11/04/20 10:10: Nucleated Red Blood Cells % (auto) 0.0 CBC/BMP Laboratory Tests 11/04/20 10:10 Microbiology Microbiology 11/03/20 Respiratory Virus Panel (PCR) ([facility]) - Final, Complete REN LOCKE DO Nov 05, 2020 08:10
--- NOTE | 2020-11-05 08:13 | OBDS ---
[facility] Obstetrical Discharge Sum. A/P, Post Course List any complications rosalinda is a 25 -year-old 1 now Para 1001 post operative day 2 after primary for cat II fetla tracing remote from delivery at 39w4d of female 4540g, 9/9. Her stay was complicated by intraamniotic infection and she received unisyn and clindamycin. The baby went to the NICU for observation due to the infection and large for gestational age status. She also has pre- eclampsia without severe features. She has been ambulating, voiding spontaneously without issue and tolerating regular diet. Breast feeding without issue. Reports lochia is like a normal period. PREOP H/H:12.1/36.2 EBL: 800ML, POST OP H/H: 9.8/30 PLAN: 1. Discharge to home on POD3 2. Tylenol, Oxycodone and Motrin for pain. 3. Encourage breast feeding and ambulation. 4. Mirena IUD for contraception- Will place at 6 weeks 5. Routine visit in 2 and 6 weeks in clinic. 6. Discussed return precautions at length. REN LOCKE DO Nov 05, 2020 08:13
[2020-11-05] MEDS: PRENATAL VITAMINS CHEWABLE TABLET PO SCH (09:19)
[2020-11-05 10:00] VITALS: BP 147/76
[2020-11-05 17:50] VITALS: BP 130/79
--- NOTE | 2020-11-06 04:56 | IPNPDOC ---
Progress Note Date of Service: Nov 06, 2020 Day#: 3 Progress Note SUBJECT: Michelle is a 25 -year-old 1 now Para 1001 POD3 S/P PLCD for cat II tracing remote from delivery at 39w4d of female 4540g, 9/9,. Delivery was complicated by pre-eclampsia without severe features and IAI for which she received unasyn and clindamycin. Baby remains in NICU at this time. She has been ambulating, voiding spontaneously without issue and tolerating regular diet. She is working on and supplementing with formula. Reports lochia is like a normal period. Reports pain is well-controlled. OBJECTIVE: VITAL SIGNS: Within normal limits, afebrile. Abdomen: Fundus firm at U-1, appropriate fundal tenderness post op Incision: clean dry and well approx with dermabond Ext: no edema, no calf tenderness ASSESSMENT: Michelle is a 25 -year-old 1 now Para 1001 POD3 S/P PLCD for cat II tracing remote from delivery at 39w4d of female 4540g, 9/9,. She has remained hemodynamically stable for last 48hrs and is meeting discharge criteria. PLAN: 1. Discharge to home today 2. Tylenol, Oxycodone and Motrin for pain. 3. Encourage breast feeding and ambulation as tolerated. 4. Mirena IUD for contraception- Will place at 6 weeks pp 5. Routine PP visit in 2 and 6 weeks in clinic. 6. Discussed return precautions at length. VS, I&O, 24H, Fishbone Vital Signs/I&O Vital Signs Date Time Temp Pulse Resp B/P (MAP) Pulse Ox O2 Delivery O2 Flow Rate FiO2 11/05/20 20:50 16 11/05/20 17:50 98.8 98 130/79 (96) 98 Room Air Laboratory Data Microbiology Microbiology 11/03/20 Respiratory Virus Panel (PCR) ([facility]) - Final, Complete NELY GUIDO DO Nov 06, 2020 04:56
[2020-11-06] MEDS: oxyCODONE 5MG TAB PO PRN (05:15)
[2020-11-06] MEDS: IBUPROFEN 800 MG TAB PO SCH (06:01)
[2020-11-06 06:30] VITALS: BP 137/89
[2020-11-06] MEDS: PRENATAL VITAMINS CHEWABLE TABLET PO SCH (09:04)
== END 2020-11-06 09:28 | disposition home or self-care (01) | DRG 771 ==
LOC: M LDI 06:45 → M OBS 11-03 15:29
PROVIDERS: ADMIT Registered Nurse; ATTEND Obstetrics & Gynecology
PROC: 3E0P7GC Introduction of Other Therapeutic Substance into Female Reproductive, Via Natural or Artificial Opening (ICD-10-PCS; 2020-11-01)
PROC: 10D00Z1 Extraction of Products of Conception, Low, Open Approach (ICD-10-PCS; principal; 2020-11-03 12:46)
DX: O24.429 Gestational diabetes mellitus in childbirth, unspecified control (principal); O41.1230 Chorioamnionitis, third trimester, not applicable or unspecified; Z3A.39 39 weeks gestation of pregnancy; O99.824 Streptococcus B carrier state complicating childbirth; O26.03 Excessive weight gain in pregnancy, third trimester; O76 Abnormality in fetal heart rate and rhythm complicating labor and delivery; O66.2 Obstructed labor due to unusually large fetus; O14.04 Mild to moderate pre-eclampsia, complicating childbirth; Z37.0 Single live birth

== ENCOUNTER 2020-12-13 11:37 | Emergency (ER) | payer OTHER ==
[~2020-12-13] VITALS: Ht 162.6 cm; Wt 95.0 kg
[2020-12-13 11:38] VITALS: BP 132/82
[2020-12-13 13:33] LABS: BASO % 0.1 % (0.0-1.0); EOS # 0.3 10^3/uL (0.0-0.5); HEMATOCRIT 39.7 % (36.0-47.0); HEMOGLOBIN 12.6 g/dl (12.0-15.5); LYMPH # 1.7 10^3/uL (1.5-5.0); LYMPH % 24.6 % (24.0-44.0); MEAN CORPUSCULAR HGB CONC 31.7 g/dl (32.0-36.5); MEAN CORPUSCULAR VOLUME 88.2 fl (80.0-96.0); MONO # 0.4 10^3/uL (0.0-0.8); NEUTROPHILS # 4.4 10^3/uL (1.5-8.5); PLATELET COUNT, AUTOMATED 330 10^3/uL (150-450); WHITE BLOOD COUNT 6.8 10^3/uL (4.0-10.0)
[2020-12-13 14:03] LABS: BLOOD UREA NITROGEN 10 MG/DL (7-18); C REACTIVE PROTEIN QUANTITATIV 0.51 MG/DL (0.00-0.30); CARBON DIOXIDE LEVEL 30 MEQ/L (21-32); CHLORIDE LEVEL 106 MEQ/L (98-107); CREATININE FOR GFR 0.82 MG/DL (0.55-1.30); GLOMERULAR FILTRATION RATE > 60.0 (>60); GLUCOSE, FASTING 99 MG/DL (70-100); POTASSIUM SERUM 4.4 MEQ/L (3.5-5.1); SODIUM LEVEL 140 MEQ/L (136-145)
--- NOTE | 2020-12-13 14:33 | REP ---
INDICATION: post tenderness at incision site r/o abscess. COMPARISON: None. TECHNIQUE: Real-time sonographic evaluation of the anterior abdominal wall is performed at the scar for recent section. FINDINGS: Small oval area of fluid is seen with the internal low-level echoes. It measures 11 x 6 x 4 mm. IMPRESSION: Small area of fluid in the soft tissues beneath the section scar, measuring 11 x 6 x 4 mm. This may represent a seroma. Superimposed infection cannot be excluded. <Electronically signed by Brenden Kelley > 12/13/20 [id number]
[2020-12-13] MEDS ORDERED: IBUP-1022 PO (15:12)
== END 2020-12-13 15:23 | disposition home or self-care (01) ==
LOC: M ED 11:37
DX: O90.89 Other complications of the puerperium, not elsewhere classified (principal)

== ENCOUNTER → 2021-01-20 | Outpatient (CLI) | payer OTHER ==
[~2021-01-20] MED LIST changes: +GASTROGRAFIN SOLUTION 30ML (Q9963) As Ordered ONE; +IBUP-1022 PO; +ISOVUE-370 76% 100ML VIAL As Ordered ONE
--- NOTE | 2021-01-22 10:34 | REP ---
INDICATION: ABD MASS FOLLOWING C SECTION. COMPARISON: Pelvic ultrasound dated 12/13/2020 TECHNIQUE: Axial contrast-enhanced images from the lung bases to the pubic symphysis using oral and 100 cc Isovue 370 intravenous contrast material. Coronal and sagittal reformations obtained. This CT examination was performed using the following dose reduction techniques: Automated exposure control, adjustment of mA and/or kv according to the patient's size, and the use of iterative reconstruction technique. FINDINGS: Lung bases are clear. Liver, spleen, pancreas, gallbladder, bilateral adrenal glands and kidneys are normal. The enteric system including stomach, small, and large bowel appears normal. No evidence for obstruction or acute inflammatory process. Normal terminal ileum and appendix are identified in the right lower quadrant. Pelvis demonstrates normal bladder and heterogeneous nonspecific appearance to the uterus and adnexa without obvious acute abnormality. The previously noted fluid collection in relation to Caesarean section scar appears to have resolved with only minimal postsurgical granulation type changes now noted. No ascites. No free air. No intraperitoneal or retroperitoneal adenopathy. Abdominal aorta and vasculature appear normal. Musculoskeletal structures are intact and without acute osseous abnormality. IMPRESSION: 1. No acute abdominopelvic pathology appreciated. 2. Small suspected seroma related to prior Caesarean section noted on previous ultrasound appears to have resolved. <Electronically signed by Abe Gibson > 01/22/21 [id number]
== END ==
LOC: M RAD 07:17
PROVIDERS: ATTEND Obstetrics & Gynecology Reproductive Endocrinology
DX: O90.89 Other complications of the puerperium, not elsewhere classified (principal)

== ENCOUNTER 2021-03-22 13:52 | Emergency (ER) | payer OTHER ==
[~2021-03-22] VITALS: Ht 162.6 cm; Wt 102.2 kg
[2021-03-22 13:52] VITALS: BP 127/73
[~2021-03-22 13:52] MED LIST changes: -GASTROGRAFIN SOLUTION 30ML (Q9963) As Ordered ONE; -ISOVUE-370 76% 100ML VIAL As Ordered ONE
[2021-03-22 18:28] LABS: URINE PREG TEST NEGATIVE (NEGATIVE)
[2021-03-22] MEDS ORDERED: NAPR-837 PO (19:31)
== END 2021-03-22 20:02 | disposition home or self-care (01) ==
LOC: M ED 13:52
DX: S29.012A Strain of muscle and tendon of back wall of thorax, initial encounter (principal); X58.XXXA Exposure to other specified factors, initial encounter; Y92.89 Other specified places as the place of occurrence of the external cause